=== PATIENT | female | born 1960 | race Caucasian/White ===

== ENCOUNTER 2018-10-19 17:35 | Emergency (ER) | payer OTHER ==
[2018-10-19 17:54] VITALS: TEMP 98.1; BMI 31.1
--- NOTE | 2018-10-19 18:49 | PDOC ---
History of Present Illness - General Chief Complaint: Blood Pressure Problem Stated Complaint: HYPERTENTION Time Seen by Provider: 10/19/18 18:32 History Source: Patient Exam Limitations: No Limitations - History of Present Illness Initial Comments: Nneka Regalado is a 58 yo F w a pmh of colon Ca 3 years ago s/p resection now in remission who presents to the ER after she experienced an episode of HTN earlier today with a BP of ~180/90 and "the shakes." The patient states she does not usually have HTN and was concerned when her BP was this elevated. She denies any current symptoms and states she is fully better here in the ER. Patient denies any chest pain, SOB, difficulty breathing, headache, neck pain, back pain, abdominal pain, flank pain, dysuria, frequency, urgency, blurry vision, nausea, or vomiting. PCP: Rosalind Colmenares PSH: Colon Ca resection Social Hx: Denies smoking, drinking, or other substance usage Allergies: NKA, NKDA Past History - Past Medical History Allergies/Adverse Reactions: Allergies Allergy/AdvReac Type Severity Reaction Status Date / Time Sulfa (Sulfonamide Allergy Severe Swelling Verified 10/19/18 17:51 Antibiotics) COPD: No - Suicide/Smoking/Psychosocial Hx Smoking History: Never smoked Review of Systems - Review of Systems Able to Perform ROS?: Yes Comments:: CONSTITUTIONAL: Presence: generalized weakness Absent: fever, chills, diaphoresis, malaise, loss of appetite HEENT: Absent: rhinorrhea, nasal congestion, throat pain, throat swelling, difficulty swallowing, mouth swelling, ear pain, eye pain, visual Changes CARDIOVASCULAR: Absent: chest pain, syncope, palpitations, irregular heart rate, lightheadedness , peripheral edema RESPIRATORY: Absent: cough, shortness of breath, dyspnea with exertion, orthopnea, wheezing, stridor, hemoptysis GASTROINTESTINAL: Absent: abdominal pain, abdominal distension, nausea, vomiting, diarrhea, constipation, melena, hematochezia GENITOURINARY: Absent: dysuria, frequency, urgency, hesitancy, hematuria, flank pain, genital pain MUSCULOSKELETAL: Absent: myalgia, arthralgia, joint swelling SKIN: Absent: rash, itching, pallor HEMATOLOGIC/IMMUNOLOGIC: Absent: easy bleeding, easy bruising, lymphadenopathy, frequent infections ENDOCRINE: Absent: unexplained weight gain, unexplained weight loss, heat intolerance, cold intolerance NEUROLOGIC: Absent: headache, focal weakness or paresthesias, dizziness, unsteady gait, seizure, mental status changes, bladder or bowel incontinence PSYCHIATRIC: Absent: anxiety, depression, suicidal or homicidal ideation, hallucinations. *Physical Exam - Vital Signs Last Vital Signs Temp Pulse Resp BP Pulse Ox 98.1 F 82 16 159/73 99 10/19/18 17:52 10/19/18 18:39 10/19/18 18:39 10/19/18 18:39 10/19/18 18:39 - Physical Exam Comments: GENERAL: Well developed, well nourished. Awake and alert. No acute distress. HEENT: Normocephalic, atraumatic. PERRLA, EOMI. No conjunctival pallor. Sclera are non- icteric. Moist mucous membranes. Oropharynx is clear. NECK: Supple. Full ROM. CARDIOVASCULAR: Regular rate and rhythm. No murmurs, rubs, or gallops. Distal pulses are 2+ and symmetric. PULMONARY: No evidence of respiratory distress. Lungs clear to auscultation bilaterally. No wheezing, rales or rhonchi. ABDOMINAL: Soft. Non-tender. Non-distended. No rebound or guarding. No organomegaly. Normoactive bowel sounds. MUSCULOSKELETAL Normal range of motion at all joints. No bony deformities or tenderness. No CVA tenderness. EXTREMITIES: No cyanosis. No clubbing. No edema. No calf tenderness. SKIN: Warm and dry. Normal capillary refill. No rashes. No jaundice. NEUROLOGICAL: Alert, awake, appropriate. Cranial nerves 2-12 intact. No deficits to light touch in face, upper extremities and lower extremities. No motor deficits in the in face, upper extremities and lower extremities. Normal speech. Gait is normal without ataxia. PSYCHIATRIC: Cooperative. Good eye contact. Appropriate mood and affect. Heart Score/ECG Review - ECG Intrepretation Rhythm: Regular Rhythm - [place]: Normal - P and W[place] Prominent R with upright T in V1 (true posterior NH): No Delta Wave(s) Present: No WPW: No - QRS Poor R Wave Progression: No Q Wave Present: No - ST and T Early Repolarization: No Non Specific ST-T Wave changes: No Flattened T Waves: No Prolonged Q-T Interval: No - ECG Impressions Normal ECG: Yes Non-specific ST Elevation: No Ischemic Changes: No Bradycardia: No Torsades betty Pointes: No WPW: No ED Treatment Course - LABORATORY CBC & Chemistry Diagram: 10/19/18 19:05 10/19/18 19:07 Medical Decision Making - Medical Decision Making Nneka Regalado is a 58 yo F w a pmh of colon Ca 3 years ago s/p resection now in remission who presents to the ER after she experienced an episode of HTN earlier today with a BP of ~180/90 and "the shakes." The patient states she does not usually have HTN and was concerned when her BP was this elevated. She denies any current symptoms and states she is fully better here in the ER. Patient denies any chest pain, SOB, difficulty breathing, headache, neck pain, back pain, abdominal pain, flank pain, dysuria, frequency, urgency, blurry vision, nausea, or vomiting. Vital Signs Temp Pulse Resp BP Pulse Ox 98.1 F 82 16 159/73 99 10/19/18 17:52 10/19/18 18:39 10/19/18 18:39 10/19/18 18:39 10/19/18 18:39 DDx IBNLT: Hypertensive emergency vs urgency, asymptomatic htn, NANDA, electrolyte /metabolic disturbance, ACS/NH, cardiac injury, liver injury Plan: Labs, EKG, re-assess. Labs: Leukocytosis w left shift - Will order Urine and CXR CXR: Pristine, no signs of infiltrate Urine: No signs of infections EKG: NS rate of 80, narrow complexes, normal axis, no hypertrophy, no abnormal TWI's, no Q waves, no ST elevations or depressions, W[place] 148, QTc 438. Impression: Normal EKG Re-assessment: Patient is persistently asymptomatic in ED and requests to be discharged. Will send her home with PCP FU and return precautions. Disposition: Home w PCP fu *DC/Admit/Observation/Transfer Diagnosis at time of Disposition: Elevated blood pressure reading - Discharge Dispostion Disposition: HOME Condition at time of disposition: Improved Decision to Admit order: No - Referrals Referrals: ON STAFF,NOT [Non Staff, Medical] - - Patient Instructions Printed Discharge Instructions: DI for High Blood Pressure, How to Monitor Your Blood Pressure at Home Additional Instructions: You came into the ER with elevated blood pressure. We looked at your blood and urine and found no kidney injury or heart injury. You also do not have a urinary tract infection. Your electrocardiogram was normal. Please make sure to follow up with your primary care doctor in the next 3 to 5 days to re-check your blood pressure and start taking blood pressure medications if necessary. Come back to the ER if you get a headache, chest pain, back pain, or have any other new or worsening concerns. Thank you for coming to the [facility] ER. We hope you feel better soon! Print Language: UPPER SORBIAN - Post Discharge Activity
[2018-10-19 19:31] LABS: BASO % 0.2 % (0-2.0); EOS % 1.3 % (0-4.5); HEMATOCRIT 41.8 % (32.4-45.2); HEMOGLOBIN 13.7 GM/dL (10.7-15.3); LYMPH % 24.7 % (8-40); MCH 28.6 pg (25.7-33.7); MCHC 32.8 g/dl (32.0-36.0); MEAN CELL VOLUME 87.2 fl (80-96); MEAN PLT VOLUME 8.3 fl (7.5-11.1); MONO % 6.9 % (3.8-10.2); NEUT % 66.9 % (42.8-82.8); PLATELET COUNT 291 K/MM3 (134-434); RBC 4.79 M/mm3 (3.60-5.2); RDW 13.9 % (11.6-15.6); WHITE BLOOD COUNT 12.7 K/mm3 (4.0-10.0)
[2018-10-19 20:00] LABS: ALBUMIN 4.2 g/dl (3.4-5.0); ALK PHOS 116 U/L (45-117); ANION GAP 3 MMOL/L (8-16); BILIRUBIN,TOTAL 0.3 mg/dL (0.2-1); BLOOD UREA NITROGEN 10.9 mg/dL (7-18); CHLORIDE 106 mmol/L (98-107); CO2 33 mmol/L (21-32); CREATININE 0.9 mg/dL (0.55-1.3); GLUCOSE,RANDOM 119 mg/dL (74-106); POTASSIUM 4.3 mmol/L (3.5-5.1); SGOT/AST 21 U/L (15-37); SGPT/ALT 28 U/L (13-61); SODIUM 142 mmol/L (136-145); TOT PROT 7.9 g/dl (6.4-8.2)
[2018-10-19 20:34] LABS: PH,URINE 7.5 (5.0-8.0); URINE APPEARANCE CLEAR; URINE BILIRUBIN NEGATIVE (NEGATIVE); URINE COLOR YELLOW; URINE GLUCOSE (UA) NEGATIVE (NEGATIVE); URINE KETONE NEGATIVE (NEGATIVE); URINE LEUK ESTERASE NEGATIVE (NEGATIVE); URINE NITRITE NEGATIVE (NEGATIVE); URINE PROTEIN NEGATIVE (NEGATIVE); URINE UROBILINOGEN 0.2 mg/dL (0.2-1.0)
[2018-10-19 21:00] VITALS: BP 156/84; PULSE 70
--- NOTE | 2018-10-19 21:06 | PDOC ---
Attending Attestation - Resident Resident Name: DevorahguilleMohit - ED Attending Attestation I have performed the following: I have examined & evaluated the patient, The case was reviewed & discussed with the resident, I agree w/resident's findings & plan - HPI HPI: 10/19/18 21:06 see resident hpi - Physicial Exam PE: 10/19/18 21:06 agree with resident exam - Medical Decision Making 10/19/18 21:06 58-year-old female with an episode of shakiness and elevated blood pressure at home Patient is asymptomatic in the emergency department Workup including EKG, labs, chest x-ray and urinalysis are within normal limits Patient will be discharged home, she was advised to check her blood pressure at home and bring recordings to her primary care physician She was also advised to return to the emergency department should her condition change or new symptoms develop
--- NOTE | 2018-10-20 12:44 | EKG ---
Test Reason : Blood Pressure : / mmHG Vent. Rate : 080 BPM Atrial Rate : 080 BPM P-R Int : 148 ms QRS Dur : 080 ms QT Int : 380 ms P-R-T Axes : 048 014 034 degrees QTc Int : 438 ms NORMAL SINUS RHYTHM NORMAL ECG NO PREVIOUS ECGS AVAILABLE Confirmed by Rene Xiong MD ([id number]) on 10/20/2018 12:44:07 PM Referred By: Confirmed By:Rene Xiong MD
== END 2018-10-19 20:59 | disposition home or self-care (01) ==
LOC: JER 17:35
DX: R03.0 Elevated blood-pressure reading, without diagnosis of hypertension (principal); Z85.038 Personal history of other malignant neoplasm of large intestine
CPT/HCPCS: 36415; 71046-TC-FY; 80053; 81003; 84484; 85025; 87086; 93005; 93010; 99282-25